=== PATIENT | female | born 1970 | race Caucasian/White ===

== ENCOUNTER 2017-05-21 13:32 | Emergency (ER) | payer SELFPAY ==
[~2017-05-21] VITALS: Ht 157.5 cm; Wt 95.7 kg
[2017-05-21 14:33] LABS: BASOPHIL % 0.3 % (0-2); RED CELL DISTRIBUTION WIDTH 13.8 % (11.5-14.5)
[2017-05-21 14:35] LABS: PLATELET COUNT 402 x10^3mcL (130-400)
[2017-05-21 14:48] LABS: ALBUMIN 3.3 g/dL (3.4-5.0); ALKALINE PHOSPHATASE 105 U/L (46-116); ALT/SGPT 22 U/L (14-59); AST/SGOT 11 U/L (15-37); BILIRUBIN TOTAL 0.2 mg/dL (0.20-1.00); CARBON DIOXIDE 27.4 mmol/L (21-32); CHLORIDE SERUM 106 mmol/L (98-107); CHOLESTEROL 163 mg/dL (<200); CHOLESTEROL/HDL RATIO 3.5; CREATININE SERUM 0.7 mg/dL (0.6-1.0); GFR1 > 60 mL/min; GLUCOSE SERUM 112 mg/dL (74-106); HDL CHOLESTEROL 46 mg/dL (40-60); LIPASE 183 IU/L (73-393); POTASSIUM SERUM 3.7 mmol/L (3.5-5.1); SODIUM SERUM 142 mmol/L (136-145); TOTAL PROTEIN, SERUM 7.2 g/dL (6.4-8.2); TRIGLYCERIDES 88 mg/dL (<150)
[2017-05-21 14:51] LABS: CALCIUM 8.5 mg/dL (8.5-10.1)
[2017-05-21 15:04] LABS: T3 TOTAL 1.09 ng/mL
[2017-05-21 15:15] LABS: FREE T4 1.04 ng/dL (0.76-1.46); FREE THYROXINE INDEX 3.3 ug/dL (1.4-4.5); T4(THYROXINE) 10.1 ug/dL (4.7-13.3)
[2017-05-21 15:51] LABS: microscopic required? YES; urine erythrocyte NEGATIVE (NEGATIVE)
[2017-05-21 15:57] VITALS: BP 98/62
== END 2017-05-21 15:57 | disposition home or self-care (01) ==
LOC: ED 13:32
PROVIDERS: Specialist
DX: K80.20 Calculus of gallbladder without cholecystitis without obstruction (principal)
CPT/HCPCS: 83880; 84439; J1885; J2405; J3010; Q0092